=== PATIENT | female | born 1985 | race Caucasian/White ===

== ENCOUNTER 2017-07-14 08:32 | Day surgery (SDC) | payer BC ==
[~2017-07-14] VITALS: Ht 165.1 cm; Wt 56.1 kg
[~2017-07-14 08:32] MED LIST: ASCO10004 PO; BUPR1FIL3 PO; FLUO20CA19 PO; GABA300C10 PO; HYDR25CA PO; IBUP-1223 PO; NICO-487 TD; PRAZ1CAP2 PO; TRAZ50TA18 PO
[2017-07-14 09:17] VITALS: BP 102/68
[2017-07-14] MEDS ORDERED: LACTATED RINGERS 1,000 ML IV SCH (09:21)
[2017-07-14 09:49] LABS: HCG UR SG 1.024 (1.003-1.030)
[2017-07-14] MEDS ORDERED: BUPIVACAINE/PF 0.5% ONE ×2 (09:54→11:06)
[2017-07-14] MEDS ORDERED: FENTANYL PF 100 MCG/2ML ONE (09:59)
[2017-07-14] MEDS ORDERED: MIDAZOLAM 1 MG/ML, 2ML ONE ×2 (09:59→12:41)
[2017-07-14] MEDS ORDERED: OXYcodone 5 MG/5 ML ORAL.SOL UDC PO PRN (10:00)
[2017-07-14] MEDS ORDERED: ALBUTEROL/IPRATROPIUM 2.5MG/0.5MG, 3 ML NPPB PRN (10:00)
[2017-07-14] MEDS ORDERED: FENTANYL PF 100 MCG/2ML IV PRN (10:00)
[2017-07-14] MEDS ORDERED: MEPERIDINE/PF 25MG/0.5ML IVPush PRN (10:00)
[2017-07-14] MEDS ORDERED: PROMETHAZINE 25 MG/ML, 1ML IV PRN (10:00)
[2017-07-14] MEDS ORDERED: hydrALAzine 20 MG/ML, 1ML IV PRN (10:00)
[2017-07-14] MEDS ORDERED: METOCLOPRAMIDE 5 MG/ML, 2ML IV PRN (10:00)
[2017-07-14] MEDS ORDERED: PROMETHAZINE 12.5 MG SUPP PR PRN (10:00)
[2017-07-14] MEDS ORDERED: ONDANSETRON 2MG/ML, 2ML IVPush PRN (10:00)
[2017-07-14] MEDS ORDERED: LABETALOL 5MG/ML, 20ML IV PRN (10:00)
[2017-07-14] MEDS ORDERED: DIAZEPAM 5 MG/ML, 2ML IVPush PRN (10:00)
[2017-07-14] MEDS ORDERED: MIDAZOLAM 1 MG/ML, 2ML IV PRN (10:00)
[2017-07-14] MEDS ORDERED: ACETAMINOPHEN 325 MG TABLET PO PRN (10:00)
[2017-07-14] MEDS ORDERED: LIDOCAINE-MPF 2% ,5ML ONE (10:22)
[2017-07-14] MEDS ORDERED: HYDROmorphone 2 MG/ML, 1ML ONE ×2 (10:56→12:41)
[2017-07-14] MEDS ORDERED: PROPOFOL 10 MG/ML, 20ML ONE (10:57)
[2017-07-14] MEDS ORDERED: KETOROLAC 30 MG/1 ML ONE ×2 (10:57→11:54)
[2017-07-14] MEDS ORDERED: CEFAZOLIN 1,000 MG ONE (10:57)
[2017-07-14] MEDS ORDERED: DEXAMETHASONE 4 MG/ML, 1ML ONE (10:57)
[2017-07-14] MEDS ORDERED: ONDANSETRON 2MG/ML, 2ML ONE (10:57)
[2017-07-14] MEDS ORDERED: LIDOCAINE 1%, 20ML ONE (11:06)
[2017-07-14] MEDS ORDERED: OXYcodone 5 MG/5 ML ORAL.SOL UDC ONE (12:41)
[2017-07-14] MEDS ORDERED: ACETAMINOPHEN 325 MG TABLET ONE (12:41)
[2017-07-14] MEDS: HYDROmorphone 1 MG/ML, 1ML IV PRN ×2 (12:46→12:54)
== END 2017-07-14 14:35 | disposition home or self-care (01) ==
LOC: OUT 08:32
PROVIDERS: ATTEND Orthopaedic Surgery
DX: M20.11 Hallux valgus (acquired), right foot (principal); M21.6X1 Other acquired deformities of right foot; M13.871 Other specified arthritis, right ankle and foot; L60.0 Ingrowing nail; Z88.5 Allergy status to narcotic agent; Z88.8 Allergy status to other drugs, medicaments and biological substances; Z98.890 Other specified postprocedural states; F17.210 Nicotine dependence, cigarettes, uncomplicated
CPT/HCPCS: 11750; 28112; 28238; 28297; 73620; 76001; 81025; C1713; J0690; J1100; J1170; J1885; J2405; J2704; J3010; J3490; J7120; J2250

== ENCOUNTER 2018-05-02 15:32 | Emergency (ER) | payer BC, OTHER ==
[~2018-05-02] VITALS: Ht 165.1 cm; Wt 58.8 kg
[~2018-05-02 15:32] MED LIST changes: -TRAZ50TA18 PO; +TRAZ50TA66 PO
[2018-05-02] MEDS ORDERED: KETOROLAC 30 MG/1 ML IM ONE (16:00)
[2018-05-02] MEDS ORDERED: METHOCARBAMOL 750 MG TABLET PO ONE (16:00)
[2018-05-02] MEDS ORDERED: KETOROLAC 30 MG/1 ML ONE (16:15)
[2018-05-02] MEDS ORDERED: METHOCARBAMOL 750 MG TABLET ONE (16:15)
[2018-05-02 17:21] VITALS: BP 120/76
[2018-05-03] MEDS ORDERED: BACL20TA PO (17:04)
== END 2018-05-02 17:23 | disposition home or self-care (01) ==
LOC: ED 17:06
DX: S39.012A Strain of muscle, fascia and tendon of lower back, initial encounter (principal); J93.83 Other pneumothorax; G89.29 Other chronic pain; F41.1 Generalized anxiety disorder; F17.210 Nicotine dependence, cigarettes, uncomplicated; Z79.899 Other long term (current) drug therapy; X58.XXXA Exposure to other specified factors, initial encounter; Y93.89 Activity, other specified; Y92.89 Other specified places as the place of occurrence of the external cause; Y99.8 Other external cause status
CPT/HCPCS: 71045; 72072; 93005; 96372; 99283; J1885

== ENCOUNTER 2018-05-03 16:01 | Emergency (ER) | payer BC, OTHER ==
[~2018-05-03] VITALS: Ht 165.1 cm; Wt 59.3 kg
[2018-05-03] MEDS ORDERED: FENTANYL PF 100 MCG/2ML ONE (16:54)
[2018-05-03] MEDS ORDERED: LIDOCAINE-MPF 1%, 5ML ONE ×2 (16:57→17:35)
[2018-05-03] MEDS ORDERED: SODIUM CHLORIDE FLUSH 10ML SYR IVF ONE (17:00)
[2018-05-03] MEDS ORDERED: BACL20TA PO (17:04)
[2018-05-03 17:08] LABS: MEAN CORPUSCULAR HEMOGLOBIN 28.8 pg (27.0-34.8); MEAN CORPUSCULAR HGB CONC 33.4 g/dL (32.4-35.8); MEAN CORPUSCULAR VOLUME 86.4 fL (80-100); MEAN PLATELET VOLUME 8.4 fL (7.4-10.4); PLATELET COUNT 364 x10^3/uL (130-400); RED BLOOD COUNT 5.01 x10^6/uL (3.82-5.3); RED CELL DISTRIBUTION WIDTH 13.7 % (9.6-15.2)
[2018-05-03 17:15] LABS: ANION GAP 8 mmol/L (5-15); CALCIUM 8.9 mg/dL (8.5-10.1); CHLORIDE 108 mmol/L (98-107); CREATININE 0.81 mg/dL (0.55-1.02)
[2018-05-03 17:32] LABS: BASOPHILS # (AUTO) 0.03 x10^3/uL (0-0.1); BASOPHILS % (AUTO) 0 % (0-1); EOSINOPHILS # (AUTO) 0.05 x10^3/uL (0-0.4); EOSINOPHILS % (AUTO) 0 % (1-7); LYMPHOCYTES # (AUTO) 3.54 x10^3/uL (1-3.4); LYMPHOCYTES % (AUTO) 19 % (22-44); MONOCYTES % (AUTO) 9 % (2-9); NEUTROPHILS # (AUTO) 13.06 x10^3/uL (1.8-6.8); NEUTROPHILS % (AUTO) 71 % (42-75)
[2018-05-03 17:33] LABS: MD SCAN
[2018-05-03] MEDS ORDERED: GABAPENTIN 300 MG CAPSULE PO SCH (18:00)
[2018-05-03] MEDS ORDERED: GABAPENTIN 300 MG CAPSULE ONE (18:04)
[2018-05-03] MEDS ORDERED: KETOROLAC 30 MG/1 ML ONE (18:27)
[2018-05-03] MEDS ORDERED: KETOROLAC 30 MG/1 ML IVPush ONE (18:30)
[2018-05-03] MEDS ORDERED: GABAPENTIN 300 MG CAPSULE PO ONE (18:30)
[2018-05-03] MEDS ORDERED: DIAZEPAM 5 MG/ML, 2ML IV ONE (18:30)
[2018-05-03 18:40] VITALS: BP 123/78
== END 2018-05-03 19:50 | disposition short-term general hospital (02) ==
LOC: ED 16:19 → EDIP 18:12 → UNDOADMIN 18:12 → ED 19:50
DX: J93.83 Other pneumothorax (principal); F41.1 Generalized anxiety disorder; G90.50 Complex regional pain syndrome I, unspecified; Z88.5 Allergy status to narcotic agent; Z79.899 Other long term (current) drug therapy
CPT/HCPCS: 32551; 32557; 36415; 71046; 80048; 85025; 96374; 96375; 99285; C1729; C1769; J1885; J3360

== ENCOUNTER 2020-08-10 11:50 | Day surgery (SDC) | payer MEDICAID, OTHER ==
[~2020-08-10] VITALS: Ht 165.1 cm; Wt 61.2 kg
[~2020-08-10 11:50] MED LIST changes: +ASCO100018 PO; -ASCO10004 PO; +BACL20TA PO; +BUPIVACAINE/PF 0.25% ONE; +EPINEPHRINE 1 MG/ML, 1ML ONE; -NICO-487 TD; +NICO-587 TD
[2020-08-10] MEDS ORDERED: IBUP-1623 PO (12:33)
[2020-08-10] MEDS ORDERED: GABA600T7 PO (12:33)
[2020-08-10] MEDS ORDERED: TRAM50TA2 PO (12:33)
[2020-08-10] MEDS ORDERED: CYCL5TAB PO (12:33)
[2020-08-10 12:35] LABS: HCG UR SG 1.024 (1.003-1.030)
[2020-08-10 12:43] VITALS: BP 115/79
[2020-08-10] MEDS ORDERED: LACTATED RINGERS 1,000 ML IV SCH (13:00)
[2020-08-10] MEDS ORDERED: CHLORHEXIDINE 15 ML UDC MM ONE (13:00)
[2020-08-10] MEDS ORDERED: FENTANYL PF 250 MCG/5ML ONE (14:47)
[2020-08-10] MEDS ORDERED: MIDAZOLAM 1 MG/ML, 2ML ONE (15:21)
[2020-08-10] MEDS ORDERED: CEFAZOLIN 1,000 MG ONE (15:32)
[2020-08-10] MEDS ORDERED: PROPOFOL 10 MG/ML, 20ML ONE (15:32)
[2020-08-10] MEDS ORDERED: ONDANSETRON 2MG/ML, 2ML ONE (15:32)
[2020-08-10] MEDS ORDERED: ROCURONIUM 10 MG/ML,10ML ONE (15:32)
[2020-08-10] MEDS ORDERED: SUGAMMADEX 200 MG/2 ML IVPush ONE (16:00)
[2020-08-10] MEDS ORDERED: PROMETHAZINE 12.5 MG SUPP PR PRN (16:30)
[2020-08-10] MEDS ORDERED: MEPERIDINE/PF 25MG/0.5ML IVPush PRN (16:30)
[2020-08-10] MEDS ORDERED: HYDROmorphone 1 MG/ML, 1ML INJ IVPush PRN (16:30)
[2020-08-10] MEDS ORDERED: LORazepam 2 MG/ML, 1ML IVPush PRN (16:30)
[2020-08-10] MEDS ORDERED: OXYcodone 5 MG/5 ML ORAL.SOL UDC PO PRN (16:30)
[2020-08-10] MEDS ORDERED: KETOROLAC 30 MG/1 ML IM PRN (16:30)
[2020-08-10] MEDS ORDERED: ONDANSETRON 2MG/ML, 2ML IVPush PRN (16:30)
[2020-08-10] MEDS ORDERED: OXYcodone 5 MG/5 ML ORAL.SOL UDC ONE (16:44)
[2020-08-10] MEDS ORDERED: MEPERIDINE/PF 25MG/ML,1ML ONE (16:44)
[2020-08-10] MEDS ORDERED: FENTANYL PF 100 MCG/2ML ONE ×2 (16:44→17:11)
[2020-08-10] MEDS ORDERED: KETOROLAC 30 MG/1 ML ONE (16:44)
[2020-08-10] MEDS: FENTANYL PF 100 MCG/2ML IV PRN ×4 (16:45→17:20)
[2020-08-10] MEDS ORDERED: DIAZEPAM 5 MG/ML, 2ML ONE (16:55)
[2020-08-10] MEDS ORDERED: DIAZEPAM 5 MG/ML, 2ML IVPush PRN (17:00)
[2020-08-10] MEDS ORDERED: KETOROLAC 30 MG/1 ML IVPush PRN (17:00)
[2020-08-10] MEDS ORDERED: HYDROmorphone 1 MG/ML, 1ML INJ ONE (17:46)
== END 2020-08-10 18:45 | disposition home or self-care (01) ==
LOC: OUT 11:50
PROVIDERS: ATTEND Obstetrics & Gynecology Female Pelvic Medicine and Reconstructive Surgery
DX: N94.6 Dysmenorrhea, unspecified (principal); N80.3 Endometriosis of pelvic peritoneum; N80.1 Endometriosis of ovary; N83.01 Follicular cyst of right ovary; N94.10 Unspecified dyspareunia; G43.909 Migraine, unspecified, not intractable, without status migrainosus; F17.210 Nicotine dependence, cigarettes, uncomplicated; Z20.822 Contact with and (suspected) exposure to COVID-19; Z79.1 Long term (current) use of non-steroidal anti-inflammatories (NSAID); Z79.3 Long term (current) use of hormonal contraceptives; Z79.891 Long term (current) use of opiate analgesic; Z79.899 Other long term (current) drug therapy; Z88.5 Allergy status to narcotic agent; Z88.8 Allergy status to other drugs, medicaments and biological substances; Z98.890 Other specified postprocedural states
CPT/HCPCS: 58662; 81025; 88305; J0171; J0690; J1170; J1885; J2175; J2250; J2405; J2704; J3010; J3360; J7120; U0003